=== PATIENT | female | born 1945 | race Two or more races ===

== ENCOUNTER 2019-12-18 13:25 | Outpatient (CLI) | payer MEDICARE, BC | END 2019-12-18 23:59 | disposition home or self-care (01) | LOC: WOU 13:25 | PROVIDERS: ATTEND Podiatrist Foot & Ankle Surgery | DX: L97.518 Non-pressure chronic ulcer of other part of right foot with other specified severity (principal); I87.2 Venous insufficiency (chronic) (peripheral); L84 Corns and callosities; I73.9 Peripheral vascular disease, unspecified; M21.612 Bunion of left foot; M21.611 Bunion of right foot; M06.9 Rheumatoid arthritis, unspecified; G90.09 Other idiopathic peripheral autonomic neuropathy; I10 Essential (primary) hypertension | CPT/HCPCS: G0463 ==

== ENCOUNTER 2020-01-01 12:50 | Outpatient (CLI) | payer MEDICARE, BC | END 2020-01-01 23:59 | disposition home or self-care (01) | LOC: WOU 12:50 | PROVIDERS: ATTEND Podiatrist Foot & Ankle Surgery | DX: I87.2 Venous insufficiency (chronic) (peripheral) (principal); L97.512 Non-pressure chronic ulcer of other part of right foot with fat layer exposed; L97.312 Non-pressure chronic ulcer of right ankle with fat layer exposed; I73.9 Peripheral vascular disease, unspecified; G90.09 Other idiopathic peripheral autonomic neuropathy; M06.9 Rheumatoid arthritis, unspecified; L84 Corns and callosities; M21.612 Bunion of left foot; M21.611 Bunion of right foot | CPT/HCPCS: G0463 ==

== ENCOUNTER 2020-01-29 13:00 | Outpatient (CLI) | payer MEDICARE, BC | END 2020-01-29 23:59 | disposition home or self-care (01) | LOC: WOU 13:00 | PROVIDERS: ATTEND Podiatrist Foot & Ankle Surgery | DX: I87.2 Venous insufficiency (chronic) (peripheral) (principal); I73.9 Peripheral vascular disease, unspecified; G90.09 Other idiopathic peripheral autonomic neuropathy; L97.318 Non-pressure chronic ulcer of right ankle with other specified severity; L97.518 Non-pressure chronic ulcer of other part of right foot with other specified severity; L84 Corns and callosities; M21.612 Bunion of left foot; M21.611 Bunion of right foot; R06.9 Unspecified abnormalities of breathing | CPT/HCPCS: G0463 ==

== ENCOUNTER 2022-06-18 10:45 | Outpatient (CLI) | payer MEDICARE, BC ==
[2022-06-18] MEDS ORDERED: MUPIROCIN 2% CREAM 15 GM TUBE TP ONE (11:54)
[2022-06-18] MEDS ORDERED: CLOTRIMAZOLE 1% 15 GM TUBE TP ONE (11:58)
== END 2022-06-18 23:59 | disposition home or self-care (01) ==
LOC: WOU 10:45
PROVIDERS: ATTEND Podiatrist Foot & Ankle Surgery
DX: I87.2 Venous insufficiency (chronic) (peripheral) (principal); L97.312 Non-pressure chronic ulcer of right ankle with fat layer exposed; L60.2 Onychogryphosis; B35.1 Tinea unguium; M79.675 Pain in left toe(s); M79.674 Pain in right toe(s)
CPT/HCPCS: G0463